=== PATIENT | female | born 1965 | race Caucasian/White ===

== ENCOUNTER 2017-04-03 11:38 | Outpatient (CLI) | payer OTHER ==
[~2017-04-03 11:38] MED LIST: DIOVAN320 MG PO; NABUMETONE500 MG PO; PERCOCET 5/3251 TAB PO
== END 2017-04-03 11:51 | disposition home or self-care (01) ==
LOC: LAB 11:38
DX: E03.8 Other specified hypothyroidism (principal)

== ENCOUNTER 2017-04-03 11:41 | Outpatient (CLI) | payer OTHER | END 2017-04-03 15:04 | disposition home or self-care (01) | LOC: MAMO-SONO 11:41 → MRI 15:15 | DX: Z12.31 Encounter for screening mammogram for malignant neoplasm of breast (principal); N60.11 Diffuse cystic mastopathy of right breast; N60.12 Diffuse cystic mastopathy of left breast ==

== ENCOUNTER 2017-04-03 12:48 | Outpatient (CLI) | payer OTHER | END 2017-04-03 15:04 | disposition home or self-care (01) | LOC: MRI 12:48 | DX: M51.26 Other intervertebral disc displacement, lumbar region (principal); M51.36 Other intervertebral disc degeneration, lumbar region | CPT/HCPCS: 72148 ==

== ENCOUNTER 2017-04-12 10:22 | Outpatient (CLI) | payer OTHER | END 2017-04-12 14:07 | disposition home or self-care (01) | LOC: MRI 10:22 | DX: M25.512 Pain in left shoulder (principal) | CPT/HCPCS: 73221; 73722 ==

== ENCOUNTER 2017-04-12 11:07 | Outpatient (CLI) | payer OTHER | END 2017-04-12 14:07 | disposition home or self-care (01) | LOC: SONOGRAMA 11:07 | DX: M25.512 Pain in left shoulder (principal) ==

== ENCOUNTER 2017-05-27 08:47 | Outpatient (CLI) | payer OTHER | END 2017-05-27 09:06 | disposition home or self-care (01) | LOC: NUCLEAR 08:47 | DX: E05.00 Thyrotoxicosis with diffuse goiter without thyrotoxic crisis or storm (principal) | CPT/HCPCS: 78012; A9531 ==

== ENCOUNTER 2017-05-28 09:53 | Outpatient (CLI) | payer OTHER | END 2017-05-28 09:55 | disposition home or self-care (01) | LOC: NUCLEAR 09:53 | DX: E05.00 Thyrotoxicosis with diffuse goiter without thyrotoxic crisis or storm (principal) | CPT/HCPCS: 78013; A9512 ==

== ENCOUNTER 2017-07-12 10:52 | Outpatient (CLI) | payer OTHER ==
[~2017-07-12] VITALS: Ht 152.4 cm; Wt 72.6 kg
== END 2017-07-12 11:15 | disposition home or self-care (01) ==
LOC: OFIC 805 10:52
DX: H81.11 Benign paroxysmal vertigo, right ear (principal)

== ENCOUNTER 2017-07-22 09:47 | Outpatient (CLI) | payer OTHER | END 2017-07-22 14:25 | disposition home or self-care (01) | LOC: SONOGRAMA 09:47 | DX: E04.2 Nontoxic multinodular goiter (principal) ==

== ENCOUNTER 2018-04-24 10:16 | Outpatient (CLI) | payer OTHER | END 2018-04-24 14:00 | disposition home or self-care (01) | LOC: MRI 10:16 | DX: M54.5 Low back pain (principal); M54.16 Radiculopathy, lumbar region | CPT/HCPCS: 72148 ==

== ENCOUNTER 2019-01-20 16:10 | Emergency (ER) | payer OTHER ==
[~2019-01-20] VITALS: Ht 157.5 cm; Wt 76.7 kg
[2019-01-20] MEDS ORDERED: LEVOTHYROXINE25 MCG (17:28)
[2019-01-20] MEDS ORDERED: LISINOPRIL40 MG (17:28)
[2019-01-20] MEDS ORDERED: LIRICA (17:29)
[2019-01-20] MEDS ORDERED: TOPROL XL50 M1 (17:29)
[2019-01-20] MEDS ORDERED: HIDRALAZINE (17:30)
== END 2019-01-20 22:36 | disposition home or self-care (01) ==
LOC: ER 16:10
DX: S06.0X0A Concussion without loss of consciousness, initial encounter (principal); S70.01XA Contusion of right hip, initial encounter; M54.2 Cervicalgia; M62.838 Other muscle spasm; W18.09XA Striking against other object with subsequent fall, initial encounter; Y93.E8 Activity, other personal hygiene; Y92.89 Other specified places as the place of occurrence of the external cause; Y99.8 Other external cause status

== ENCOUNTER 2019-08-03 18:53 | Emergency (ER) | payer OTHER ==
[~2019-08-03] VITALS: Ht 157.5 cm; Wt 74.8 kg
[~2019-08-03 18:53] MED LIST changes: +HIDRALAZINE; +LEVOTHYROXINE25 MCG; +LIRICA; +LISINOPRIL40 MG; +TOPROL XL50 M1
[2019-08-03] MEDS ORDERED: LEVO-T50 MCG (19:25)
[2019-08-03] MEDS ORDERED: TOPROL XL50 M1 PO (19:26)
[2019-08-03] MEDS ORDERED: RELAFEN DS1000 MG (19:27)
[2019-08-03] MEDS ORDERED: RELAFEN DS1000 MG PO (19:27)
[2019-08-03] MEDS ORDERED: MEDI-MECLIZINE25 MG PO (19:48)
[2019-08-03] MEDS ORDERED: CEFADROXIL500 MG PO (19:48)
== END 2019-08-03 21:03 | disposition home or self-care (01) ==
LOC: ER 18:53
DX: H66.93 Otitis media, unspecified, bilateral (principal); R42 Dizziness and giddiness

== ENCOUNTER 2021-10-16 10:55 | Outpatient (CLI) | payer OTHER ==
[~2021-10-16 10:55] MED LIST changes: +CEFADROXIL500 MG PO; +LEVO-T50 MCG; +MEDI-MECLIZINE25 MG PO; +RELAFEN DS1000 MG; +RELAFEN DS1000 MG PO; +TOPROL XL50 M1 PO
== END 2021-10-16 10:59 | disposition home or self-care (01) ==
LOC: SONOGRAMA 10:55
PROVIDERS: ATTEND Pathology Anatomic Pathology & Clinical Pathology
DX: E04.2 Nontoxic multinodular goiter (principal)

== ENCOUNTER 2022-09-06 13:20 | Emergency (ER) | payer OTHER ==
[~2022-09-06] VITALS: Ht 157.5 cm; Wt 77.1 kg
== END 2022-09-06 15:31 | disposition home or self-care (01) ==
LOC: ER 13:20
PROVIDERS: Emergency Medicine
DX: R07.89 Other chest pain (principal); E03.9 Hypothyroidism, unspecified; I10 Essential (primary) hypertension

== ENCOUNTER 2023-09-03 14:28 | Outpatient (CLI) | payer OTHER | END 2023-09-03 14:31 | disposition home or self-care (01) | LOC: RAD 14:28 | PROVIDERS: ATTEND Physical Medicine & Rehabilitation | DX: M16.11 Unilateral primary osteoarthritis, right hip (principal); M25.552 Pain in left hip ==